=== PATIENT | male | born 1935 | race Caucasian/White ===

== ENCOUNTER 2020-04-05 10:39 | Emergency (ER) | payer MEDICARE ==
[~2020-04-05] VITALS: Ht 172.7 cm; Wt 100.0 kg
[2020-04-05 11:46] LABS: BASOPHILS % 0.7 % (0.0-2.0); EOSINOPHILS % 1.4 % (0.0-5.0); HEMATOCRIT. 41.4 % (42.0-52.0); HEMOGLOBIN. 14.3 g/dL (14.0-18.0); LYMPHOCYTES % 16.4 % (20.0-50.0); MEAN CORPUSCULAR HEMOGLOBIN 32.6 pg (28.0-32.0); MEAN CORPUSCULAR VOLUME 94.7 fL (80.0-94.0); MEAN PLATELET VOLUME 8.4 fl (7.4-10.4); MONOCYTES % 10.9 % (2.0-8.0); NEUTROPHILS % 70.6 % (40.0-76.0); PLATELET 179 x1000/uL (130-400); RED BLOOD CELL COUNT 4.37 mill/uL (4.7-6.1)
[2020-04-05 11:55] LABS: CHLORIDE 104 mEq/L (98-107)
[2020-04-05 13:32] VITALS: BP 170/99
== END 2020-04-05 13:33 | disposition home or self-care (01) ==
LOC: ER 10:39
DX: R60.9 Edema, unspecified (principal); I49.9 Cardiac arrhythmia, unspecified
CPT/HCPCS: 36415; 71045; 80053; 83880; 84484; 85025; 93005; 99285